=== PATIENT | male | born 1970 | race Caucasian/White ===

== ENCOUNTER 2019-02-12 10:11 | Emergency (ER) | payer BC ==
[~2019-02-12] VITALS: Ht 182.9 cm; Wt 122.5 kg
[2019-02-12] MEDS ORDERED: LISINOPRIL10 MG PO (10:17)
[2019-02-12] MEDS ORDERED: AMOXICILLIN 50500 MG PO (10:17)
[2019-02-12] MEDS ORDERED: FLONASE 0.05%50 MCG NASAL (10:18)
[2019-02-12 10:39] LABS: HEMATOCRIT 45.6 % (42.0-52.0); HEMOGLOBIN 15.5 gm/dL (14.0-18.0); MCH 28.4 pg (26.0-34.0); MCHC 34.1 g/dL (28.0-37.0); MCV 83.2 fL (80.0-100.0); MPV 8.4 fl. (7.2-11.1); NUCLEATED RBCS 0 /100WBC; PLATELET COUNT* 295 thou/uL (150-400); RBC 5.48 mil/uL (4.50-6.00); RDW-CV 14.3 % (10.5-14.5); WBC 8.1 thou/uL (4.0-11.0)
[2019-02-12 10:44] LABS: ANION GAP 11 mmol/L (7-16); BUN 11 mg/dL (7-18); CALCIUM 8.8 mg/dL (8.5-10.1); CHLORIDE 99 mmol/L (98-107); CO2 27 mmol/L (21-32); CREATININE 1.2 mg/dL (0.6-1.3); GLUCOSE 163 mg/dL (70-99); POTASSIUM 3.6 mmol/L (3.5-5.1); SODIUM 137 mmol/L (136-145)
[2019-02-12 10:49] LABS: PROTIME 10.7 Seconds (9.20-11.50)
[2019-02-12 10:53] LABS: ALBUMIN 3.7 g/dL (3.4-5.0); ALKALINE PHOSPHATASE 99 U/L (46-116); SGOT 69 U/L (15-37); SGPT 123 U/L (30-65); TOTAL BILIRUBIN 0.7 mg/dL (<0.1-1.0); TOTAL PROTEIN 8.5 g/dL (6.4-8.2); TROPONIN-I LEVEL <0.06 ng/mL (<0.06)
[2019-02-12 11:06] LABS: ABSOLUTE EOSINOPHILS 0.2 thou/uL (0.0-0.7); ABSOLUTE MONOCYTES 0.1 thou/uL (0.0-1.2); ABSOLUTE NEUTROPHILS 2.8 thou/uL (1.6-8.1)
[2019-02-12 11:07] LABS: ATYPICAL LYMPHS 26 %; PLATELET ESTIMATE ADEQUATE
[2019-02-12 13:15] VITALS: BP 118/57
--- NOTE | 2019-02-13 12:29 | EKG ---
[place] [id number] ELECTROCARDIOGRAM REPORT Name: COREY CIFUENTES Room: [facility]#: [id number] Admission: 02/12/19 Attend Phys: Discharge: 02/12/19 Date of : 74 Report #: [id number] THIS REPORT FOR: //name// [facility] ED Test Date: 2019-02-12 Test Time: 10:15:49 Pat Name: COREY CIFUENTES Department: Room: Gender: M Document Controller: : 1970 Requested By: Rin Claros Order Number: [id number] MD: Sylvester Hooper Measurements Intervals [place] Rate: 106 P: 57 VT: 132 QRS: 23 QRSD: 94 T: -10 QT: 325 QTc: 432 Interpretive Statements Sinus tachycardia Left ventricular hypertrophy Borderline T abnormalities, inferior leads No previous ECG available for comparison Electronically Signed On 02-13-2019 12:29:12 CDT by Sylvester Hooper [email or web address] <ELECTRONICALLY SIGNED> By: Sylvestre Hooper MD, [facility] 02/13/19 1229 [id number] [id number] Sylvester Hooper MD, FACC /EPI
== END 2019-02-12 13:17 | disposition home or self-care (01) ==
LOC: M.ERS 10:11
PROVIDERS: Personal Emergency Response Attendant
DX: R07.89 Other chest pain (principal); R42 Dizziness and giddiness; I10 Essential (primary) hypertension